=== PATIENT | male | born 1990 | race Caucasian/White ===

== ENCOUNTER 2024-07-30 11:08 | Emergency (ER) | payer OTHER ==
[~2024-07-30] VITALS: Ht 172.7 cm; Wt 90.9 kg
[2024-07-30 11:41] VITALS: BP 127/89; PULSE 86; RESP 18; TEMP 97.7; O2SAT 98
[2024-07-30] MEDS: CefTRIAXone SODIUM 1 GM/VIAL IM ONE (12:06)
[2024-07-30] MEDS: LIDOCAINE/PF 1% 2 ML VIAL IM ONE (12:06)
== END 2024-07-30 12:49 | disposition home or self-care (01) ==
LOC: EMS 11:46
DX: L03.313 Cellulitis of chest wall (principal); I10 Essential (primary) hypertension
CPT/HCPCS: 99283; 96372; J0696; J3490